=== PATIENT | female | born 1965 | race Caucasian/White ===

== ENCOUNTER 2019-08-20 15:27 | Outpatient (CLI) | payer OTHER ==
--- NOTE | 2019-08-20 16:15 | RAD ---
EXAM: Chest PA and lateral: HISTORY: Pneumonia, middle lobe. Cough. COMPARISON: None FINDINGS: Heart: Normal cardiac silhouette Aorta: Unremarkable Pulmonary vessels: Normal Costophrenic angles: Costophrenic angles are clear. Lungs: No consolidation or masses. Pneumothorax: No pneumothorax Osseous structures: No osseous abnormalities IMPRESSION: No acute cardiopulmonary process.
== END 2019-08-20 15:28 | disposition home or self-care (01) ==
LOC: BICRAD 15:27
DX: J18.9 Pneumonia, unspecified organism (principal); R05 Cough
CPT/HCPCS: 71046

== ENCOUNTER 2019-10-23 08:45 | Outpatient (CLI) | payer OTHER ==
--- NOTE | 2019-10-23 16:27 | NM ---
RADIONUCLIDE PARATHYROID SCAN WITH PLANAR AND SPECT IMAGES: 10/23/19 HISTORY: Hypercalcemia. RADIOPHARMACEUTICAL: 25.4 millicuries technetium 99m - Sestamibi injected intravenously. FINDINGS: There is physiologic activity in the salivary glands, the visualized portions of the liver and heart and thyroid gland. No abnormal persistently increased tracer localization is seen in the neck or chest. IMPRESSION: No scintigraphic evidence of parathyroid adenoma. POS: JESSICA
== END 2019-10-23 08:46 | disposition home or self-care (01) ==
LOC: NM 08:45
DX: E83.52 Hypercalcemia (principal)
CPT/HCPCS: 78072; A9500

== ENCOUNTER 2020-12-21 14:48 | Outpatient (CLI) | payer OTHER | END 2020-12-21 14:49 | disposition home or self-care (01) | LOC: ULT 14:48 | DX: R07.89 Other chest pain (principal); I08.1 Rheumatic disorders of both mitral and tricuspid valves | CPT/HCPCS: 93306 ==